=== PATIENT | female | born 1975 | race Caucasian/White ===

== ENCOUNTER 2020-09-30 15:39 | Emergency (ER) | payer OTHER ==
[~2020-09-30 15:39] MED LIST: ALLEGRA ALLERG180 MG PO; MEDROL 4MG DOSEP4 MG PO; VENLAFAXINE HCL75 M1 PO; VENTOLIN HFA IN18 GM INH; VOLTAREN **OUT75 MG PO
== END 2020-09-30 15:54 | disposition left against medical advice (07) ==
LOC: FER 15:39
DX: M25.561 Pain in right knee (principal); Z53.8 Procedure and treatment not carried out for other reasons

== ENCOUNTER 2020-10-01 11:14 | Emergency (ER) | payer OTHER | END 2020-10-01 12:39 | disposition home or self-care (01) | LOC: FER 11:14 | DX: S80.01XA Contusion of right knee, initial encounter (principal); Z88.6 Allergy status to analgesic agent; W19.XXXA Unspecified fall, initial encounter; Y92.009 Unspecified place in unspecified non-institutional (private) residence as the place of occurrence of the external cause | CPT/HCPCS: 73564 ==

== ENCOUNTER 2020-11-05 00:35 | Emergency (ER) | payer OTHER ==
[2020-11-05 01:03] LABS: BASOPHIL 0.4 % (0-2); HCT 37.1 % (37.0-47.0); LYMPHOCYTE 22.5 % (15-48); MCH 30.1 pg (25.0-31.0); MCHC 32.3 g/dL (32.0-36.0); MONOCYTE 8.9 % (0-12); MPV 9.6 fL (6.0-9.5); NRBC 0; PLT 230 K/uL (150-400); RBC 3.99 M/uL (4.20-5.40); RDW 13.2 % (11.5-14.0); WBC 9.5 K/uL (4.0-10.5)
[2020-11-05 01:22] LABS: ALBUMIN 3.2 g/dL (3.4-5.0); BILIRUBIN - TOTAL 0.3 mg/dL (0.2-1.0); BUN/CREAT RATIO (CALC) 16.7 RATIO; CREATININE 0.9 mg/dL (0.51-0.95); GLOBULIN (CALCULATION) 3.1 g/dL; POTASSIUM 3.4 mmol/L (3.5-5.1); TOTAL PROTEIN 6.3 g/dL (6.4-8.2)
[2020-11-05 01:29] LABS: LACTIC ACID 1.7 mmol/L (0.4-1.9)
[2020-11-05 02:06] LABS: CORONAVIRUS 2019 SARS-COV-2 POSITIVE (NEGATIVE); INFLUENZA A NAA NEGATIVE (NEGATIVE)
[2020-11-05] MEDS ORDERED: PREDNISONE 20MG20 MG PO (06:25)
[2020-11-05] MEDS ORDERED: VENTOLIN HFA IN18 GM INH (06:28)
== END 2020-11-05 06:50 | disposition home or self-care (01) ==
LOC: FER 00:35
PROVIDERS: Emergency Medicine
DX: U07.1 COVID-19 (principal); I10 Essential (primary) hypertension; J45.909 Unspecified asthma, uncomplicated; Z88.5 Allergy status to narcotic agent; Z88.6 Allergy status to analgesic agent
CPT/HCPCS: 36415; 71045; 80053; 83605; 83880; 85025; 85379; 87040; 94640; 94664; J2930; J7050; M0239; U0002